=== PATIENT | male | born 2000 | race Caucasian/White ===

== ENCOUNTER 2019-11-28 18:44 | Emergency (ER) | payer OTHER ==
[~2019-11-28] VITALS: Ht 177.8 cm; Wt 76.4 kg
[2019-11-28] MEDS ORDERED: APAP325T4 PO (18:52)
[2019-11-28] MEDS ORDERED: KETOROLAC TROMETHAMINE 10 MG TAB PO ONE (19:30)
[2019-11-28] MEDS ORDERED: IBUP80TA PO (20:26)
[2019-11-28 20:34] VITALS: BP 122/71
--- NOTE | 2019-11-29 03:55 | REP ---
REASON: Pain after trauma. AP pelvis and two views of the right hip. AP PELVIS: A single AP view of the pelvis was performed. The hip joint spaces are symmetric and relatively well maintained. There is no acute fracture or destructive osseous lesion. RIGHT HIP: FINDINGS: The hip joint space is symmetric and relatively well maintained. There is no acute or destructive osseous lesion. Electronically Signed by Juan Ortiz DO 11/29/2019 08:41 A
== END 2019-11-28 20:37 | disposition home or self-care (01) ==
LOC: M ED 18:44
DX: M25.551 Pain in right hip (principal); F17.210 Nicotine dependence, cigarettes, uncomplicated